=== PATIENT | male | born 1965 ===

== ENCOUNTER 2019-03-08 05:22 | Observation (INO) ==
[2019-03-08] MEDS ORDERED: ceFAZolin Inj 2gm (Premix) 2 GM/50 ML BAG IV ONE ×2 (05:47→06:00)
[2019-03-08] MEDS ORDERED: Lactated Ringers 1,000 ML PRIMARY IV ONE ×4 (05:47→13:02)
[2019-03-08] MEDS ORDERED: LIDOCAINE W/ SODIUM BICARB 0.5 ML SYR ONE (05:48)
[2019-03-08] MEDS ORDERED: Vancomycin-PHA to Dose IV PRN (06:00)
[2019-03-08] MEDS ORDERED: LIDOCAINE W/ SODIUM BICARB 0.5 ML SYR SUBD ONE (06:00)
[2019-03-08] MEDS ORDERED: Nasal Sanitizer POPSWAB ampule 3 AMP (Nozin) PREOP DOSE ENOS SCH (06:00)
[2019-03-08] MEDS ORDERED: BUPIVACAINE 0.25% W/ EPI - 10 ML VIAL ONE (06:52)
[2019-03-08] MEDS ORDERED: BACITRACIN 50,000 UNIT VIAL IRRIG ONE ×2 (06:52→11:08)
[2019-03-08] MEDS ORDERED: Sodium Chloride 0.9% vial 10 ML ONE ×3 (06:52→11:08)
[2019-03-08] MEDS ORDERED: LIDOCAINE HCL 2 % 10 ML JELLY URO-JECT TOPICAL ONE ×2 (06:53→07:54)
[2019-03-08] MEDS ORDERED: fentaNYL Inj 250 MCG/5 ML VIAL ONE (07:05)
[2019-03-08] MEDS ORDERED: MIDAZOLAM HCL 2 MG/2 ML VIAL ONE (07:05)
[2019-03-08] MEDS ORDERED: LIDOCAINE MPF 2% - 5 ML (20 MG/1 ML) ONE (07:06)
[2019-03-08] MEDS ORDERED: REMIFENTANIL HCL 5 MG VIAL IV ONE (07:06)
[2019-03-08] MEDS ORDERED: Propofol 1,000 MG/100 ML VIAL IV ONE ×3 (07:06→10:45)
[2019-03-08] MEDS ORDERED: ePHEDrine Inj 50 MG/ML AMP ONE (07:55)
[2019-03-08 08:06] LABS: BILIRUBIN,URINE NEGATIVE (NEG); CLARITY,URINE CLEAR (CLEAR); COLOR,URINE YELLOW (Y); GLUCOSE, URINE (UA) NEGATIVE (NEG); OCCULT BLOOD,URINE NEGATIVE (NEG); PH,URINE 5.5 (5.0-8.5); PROTEIN,URINE NEGATIVE (NEG); UROBILINOGEN,URINE 0.2 EU/dL (0.2)
[2019-03-08 08:09] LABS: URINE SAMPLE TYPE CATH SPECIMEN
[2019-03-08] MEDS ORDERED: PHENYLEPHRINE 10,000 MCG/1 ML VIAL ONE (08:25)
[2019-03-08] MEDS ORDERED: LIDOCAINE HCL 2 % 10 ML JELLY URO-JECT TOPICAL PRN (09:07)
[2019-03-08] MEDS ORDERED: KETAMINE 100 MG/1 ML - 5 ML ONE (10:29)
[2019-03-08] MEDS ORDERED: HYDROmorphone 2 MG/1 ML ONE (13:11)
[2019-03-08] MEDS ORDERED: fentaNYL Inj 100 MCG/2 ML VIAL IVP PRN (14:02)
[2019-03-08] MEDS ORDERED: HYDROmorphone 2 MG/1 ML IVP PRN (14:02)
[2019-03-08] MEDS ORDERED: LIDOCAINE W/ SODIUM BICARB 0.5 ML SYR SUBD PRN (14:02)
[2019-03-08] MEDS ORDERED: ONDANSETRON 4 MG/2 ML VIAL IVP PRN ×2 (14:02→15:16)
--- NOTE | 2019-03-08 14:04 | CRNA.PROGR ---
Anesthesia Time - Procedure/Recovery Time Start Date: 03/08/19 End Date: 03/08/19 Anesthesia : Time In: 07:35 Anesthesia : Time Out: 13:44 Anesthesia : Total Time: 369 - Total Anesthesia Time Total Anesthesia Time (minutes): 369 - Other Weight: 89.358 kg Height: 5 ft 10 in Body Mass Index (BMI): 28.3 Physical Status: P2 Anesthesia Type: General Anesthesia : ET
--- NOTE | 2019-03-08 14:04 | CRNA.PROGR ---
Anesthesia Recovery Phase I - Post Anesthesia Evaluation Patient's Condition on Arrival in Phase I: Stable Pain Level: 0
[2019-03-08] MEDS ORDERED: Lactated Ringers 1,000 ML PRIMARY IV SCH (14:15)
[2019-03-08] MEDS ORDERED: BISACODYL 5 MG TABLET PO PRN (15:16)
[2019-03-08] MEDS ORDERED: DOCUSATE 100 MG CAPSULE PO PRN (15:16)
[2019-03-08] MEDS ORDERED: MAGNESIUM CITRATE 296 ML SOLUTION PO PRN (15:16)
[2019-03-08] MEDS ORDERED: Metoclopramide Inj 10 MG/2 ML VIAL IVP PRN (15:16)
[2019-03-08] MEDS ORDERED: DIAZEPAM 10 MG TABLET PO PRN (15:16)
[2019-03-08] MEDS ORDERED: PROMETHAZINE 25 MG/1 ML VIAL IM PRN (15:16)
[2019-03-08] MEDS ORDERED: MORPHINE SULFATE 2 MG/1 ML IVP PRN (15:16)
[2019-03-08] MEDS ORDERED: MAGNESIUM 400 MG/5 ML - 30 ML (MILK OF MAGNESIA) PO PRN (15:16)
[2019-03-08] MEDS ORDERED: DIAZEPAM 10 MG/2 ML (5 MG/1 ML) CARPUJECT IVP PRN (15:16)
[2019-03-08] MEDS ORDERED: HYDROcodone-APAP 10 MG-325 MG TABLET PO PRN (15:16)
[2019-03-08] MEDS ORDERED: Fleet Enema 133ml RECTAL PRN (15:16)
[2019-03-08] MEDS ORDERED: Prochlorperazine Edisylate Inj 10mg/2ml vial IVP PRN (15:16)
[2019-03-08] MEDS ORDERED: Vancomycin-PHA to Dose IV SCH (15:16)
[2019-03-08] MEDS ORDERED: Ondansetron ODT Tab 4 MG TAB PO PRN (15:16)
[2019-03-08] MEDS ORDERED: HYDROcodone-APAP 5 MG -325 MG TABLET PO PRN (15:16)
[2019-03-08] MEDS: HYDROcodone-APAP 7.5 MG-325 MG TABLET PO PRN ×3 (15:56→23:29)
[2019-03-08] MEDS: ceFAZolin Inj 1 GM in Sodium Chloride 0.9% 100 ML IV SCH ×2 (16:34→23:27)
--- NOTE | 2019-03-08 17:36 | GEN.OPNOTE ---
Operative Note Surgery Date: 03/08/19 Preoperative Diagnosis: 1. Chronic neck pain. 2. Bilateral cervical radicular pain. 3. Constant numbness and tingling in the hands bilaterally. 4. 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 5. Multilevel cervical stenosis, moderate C4-5, severe C5-6, moderately severe C6-7. 6. Severe bilateral C4-5 neuroforaminal stenosis, severe right and severe bilateral C4-5, C5-6 and C6-7 neural foraminal stenosis worse on the right at all. cervical levels. 7. Multilevel cervical degenerative disc disease, moderate C4-5, advanced C5-6 and C6-7. 8. Multilevel mild to moderate cervical facet arthropathy and hypertrophy C3-4 bilaterally advanced C4-5 bilaterally. 9. C4-5, C5-6 and C6-7 bilateral uncal vertebral joint hypertrophy. 10. Reversal of the normal cervical lordosis, C4-C7. Postoperative Diagnosis: 1. Chronic neck pain. 2. Bilateral cervical radicular pain. 3. Constant numbness and tingling in the hands bilaterally. 4. 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 5. Multilevel cervical stenosis, moderate C4-5, severe C5-6, moderately severe C6-7. 6. Severe bilateral C4-5 neuroforaminal stenosis, severe right and severe bilateral C4-5, C5-6 and C6-7 neural foraminal stenosis worse on the right at all. cervical levels. 7. Multilevel cervical degenerative disc disease, moderate C4-5, advanced C5-6 and C6-7. 8. Multilevel mild to moderate cervical facet arthropathy and hypertrophy C3-4 bilaterally advanced C4-5 bilaterally. 9. C4- 5, C5-6 and C6-7 bilateral uncal vertebral joint hypertrophy. 10. Reversal of the normal cervical lordosis, C4-C7. Procedure: 1.) Arthrodesis, anterior cervical, with discectomy, osteophytectomy and foraminotomies bilaterally with removal of the posterior longitudinal ligament with decompression of central canal and bilateral neuroforaminal stenosis and disc space preparation for fusion of the interspace, C4-5. (CPT code: 39284). 2.) Arthrodesis, anterior cervical, with discectomy, osteophytectomy and foraminotomies bilaterally with removal of the posterior longitudinal ligament with decompression of central canal and bilateral neuroforaminal stenosis and disc space preparation for fusion of the interspace, C5-6. (CPT code: 94010). 3.) Arthrodesis, anterior cervical, with discectomy, osteophytectomy and foraminotomies bilaterally with removal of the posterior longitudinal ligament with decompression of central canal and bilateral neurof oraminal stenosis and disc space preparation for fusion of the interspace, C6-7. (CPT code: 99898). 4.) Insertion of a 7 mm x 14 mm x 17 mm 6-degree lordotic Advance Tritanium C titanium anterior cervical cage filled in the center with Anette DBM Putty (implantable allograft) into the C4-5 interspace for fusion of the C3-4 interspace. (CPT code: 36126). 5.) Insertion of a 7 mm x 14 mm x 17 mm 6-degree lordotic Anette Tritanium C titanium anterior cervical cage filled in the center with Anette DBM Putty (implantable allograft) into the C5-6 interspace for fusion of the C4-5 interspace. (CPT code: 85161). 6.) Insertion of a 6 mm x 14 mm x 17 mm 6-degree lordotic Anette Tritanium C titanium anterior cervical cage filled in the center with Advance DBM Putty (implantable allograft) into the C6-7 interspace for fusion of the C5-6 interspace. (CPT code: 17567). 7.) Anterior cervical plating, C4-7 using a 3 level, 8 hole, 48 mm Advance Aviator titanium anterior cervical plate affixed to the C4, C5, and C6 vertebral bodies using 4.0 mm x 16 mm variable angle titanium anterior cervical screws, and to the C7 vertebral body using 4.0 mm x 16 mm fixed angle titanium anterior cervical screws. (CPT code: 73635). 8.) Use of 5 cc of Advance DBM Putty (implantable allograft) for filling of the anterior cervical cages. (CPT code: 71515). 9.) Use of the operative microscope for the microsurgical techniques used for the C4-5, C5-6, and C6-7 discectomies and foraminotomies. (CPT code: 58268). 10.) Use of intra-operative fluoroscopy for location of the correct surgical levels and for confirmation of the final position of the intervertebral cages and final confirmation of the position of the anterior cervical hardware elements. 11.) Use of intra-operative neuromonitoring including EMG's, SSEP's, and MEP's. Surgeon: Ward Bryan MD Botany Technician: WILMER Sierra Anesthesia Provider: Crow Aldridge CRNA Anesthesia Type: General Estimated Blood Loss (mL): 75 Fluids: See anesthesia record Pathology: None Indications: Mr. Bartholomew is a 53 year old gentleman who was seen in a new patient consultation on 02/07/19. Mr. Bartholomew recently had a stoke while at work in [place]. He was following up with Dr. Biggs who sent Mr. Bartholomew for a cervical and brain MRI and referred him for his neck pain. His cervical MRI demonstrated mild to moderate degenerative disc disease at C2- 3, C3-4, and C7-T1, moderate degenerative disc disease at C4-5, and early advanced to advanced degenerative disc disease at C5-6 and C6-7. There is multilevel mild to moderate facet arthropathy and hypertrophy throughout the cervical spine. There is a mild anterolisthesis of C4 on C5 and diffuse disc/osteophye complexes at C4-5, C5-6, and C6-7 with cervical central canal stenosis at these levels and moderately severe to severe bilateral neuroforaminal stenosis at these levels. Since his symptoms had not responded to expectant management or non-operative therapies, we discussed the option of proceeding with a C4-7 anterior cervical discectomy and fusion to adderess his neck pain that radiates down both arms and the numbness in his arms and hands and the weakness in his hands bilaterally. He wished to proceed with the surgical procedure and presentts today for his surgery. Findings: 1.) Multlevel cervical central canal stenosis. 2.) Multilevel cervical neuroforaminal stenosis. 3.) Multilevel diffuse prominent disc/ostephyte complexes and uncovertebral joint hypertrophy. Complications: None Operative Summary: Mr. Bartholomew was met in the preoperative area. His surgical history and physical documented in his pre-operative surgical chart was reviewed. We reviewed the procedure to be performed and we were in agreement on the procedure to be performed and this matched what was written on the patient's consent form. Any questions that Mr. Bartholomew had were answered before he was taken back to the operating room suite. Mr. Bartholomew was brought back to the operating room suite. He was moved over onto the surgical bed in the supine position. General anesthesia was induced by the anesthesia staff and he was intubated. A Wynn catheter was placed in his bladder for the procedure. He had pneumatic compression hose placed on his lower legs bilaterally. His head was placed on a gel ring and rolled up surgical towels were placed in the intrascapular area and under his shoulders bilaterally. His arms were gently tucked at his sides. All bony prominences were well padded. His Wynn catheter was checked to be free from kinks. His pneumatic compression hose were attached to a pneumatic compression devise. The C-arm fluoroscopy unit was used to help localize the skin incision for the a pproach to the intended surgical levels. The skin was marked along the medial border of the sternocleidomastoid muscle with a skin marker. Mr. Bartholomew was prepped and draped in the usual and standard fashion. He was given 2 grams of Ancef and vancomycin (as dosed per pharmacy) IV for perioperative antibiosis. A standard surgical timeout was performed identifying the correct patient, the correct procedure, and the correct equipment being available for the procedure. The intended skin incision was injected subcutaneously with quarter percent Marcaine with 1 in 200,000 epinephrine. The skin was incised with a 10 blade scalpel and all dermal and superficial bleeding points controlled with bipolar cautery. Dissection was continued down through the subcutaneous tissue to the level of the platysma muscle. The platysma muscle was incised with the Metzenbaum scissors in the direction of the skin incision. This allowed identification the medial border of the sternocleidomastoid muscle. Further dissection identified the omohyoid muscle which was circumferentially dissected out, tagged with two 0-Silk suture and then cut with a Metzenbaum scissors with the muscle stumps retracted with snaps attached to the sutures. Continued dissection was performed in both a sharp and blunt fashion down to the pre-vertebral fascia. The carotid artery was palpated to be lateral to the dissection plane. Cloward hand-held retractors were used to retract and protect the soft tissues while the prevertebral fascia was dissected with a Kitner. Once a disc space became exposed a bent spinal needle was placed into the disc space and the level was localized as the C5-6 level, one of the intended surgical levels with lateral fluoroscopy. Continued dissection of the prevertebral fascia was performed exposing the C4, C5, C6, and C7 vertebral bodies. The medial border of the longus coli muscle was dissected with Bovie cautery with an insulated tip turned down to a low setting from C4-7 bilaterally. The hand-held Cloward retractors were then replaced with the Reformatory Attendant self-retaining retractor system which was first placed at the C4-5 level to expose this level and protect the soft tissues at this level. A 14 mm distraction pin was placed into the C4 vertebral body and another was placed into the C5 vertebral body. The operative microscope was brought into the surgical field and used for the microsurgical techniques used for the C4-5 discectomy. An annulotomy was performed with a 15 blade scalpel and disc material was removed with a pituitary rongeur. Additional disc and cartilaginous endplate was loosened in the disc space using a small straight curette with the fragments being removed with a pituitary rongeur. The high-speed [employer] Tom drill with a matchstick bit was used to perform arthrodesis/decortication of the C4 and C5 endplates preparing the endplates for fusion. The same drill with the same bit was used to drill away the prominent diffuse osteophytes along the posterior inferior aspect of the C4 vertebral body and the posterior superior aspect of C5 vertebral body as well as the uncovertebral joints bilaterally. Foraminotomies were performed bilaterally with the same drill with same bit. A nerve hook was used to define the plane between the posterior longitudinal ligament and the dura. The posterior longitudinal ligament was completely r emoved with small Kerrison punches. The same instruments were used to extend the foraminotomies bilaterally that had been started with the high-speed drill with a matchstick bit. Surgical findings at this level included diffuse posterior endplate osteophytes, uncovertebral joint hypertrophy, central spinal canal and neuroforaminal stenosis bilaterally. Excellent decompression of the spinal canal, neuroforamen, and exiting nerve roots was assured both by visual inspection as well as by palpation with a nerve hook underneath the vertebral bodies and out the neuroforamen bilaterally. The interspace was irrigated with bacitracin irrigation. FloSeal hemostatic agent was placed over all exposed dural elements. The interspace was sized the appropriate size anterior cervical cage. A 7 mm x 14 mm x17 mm 6-degree lordotic Tritanium C titanium anterior cervical cage was selected and filled in the center with Anette DBM Putty (implantable allograft) and then inserted into the C4-5 interspace with the flame hardening machine operator. The cage was gently countersunk with a bone tamp and mallet. The cage obtained good purchase between the C4 and C5 endplates. The final position of the cage was confirmed with lateral fluoroscopy. The C4 [place] distraction pin was removed and bony bleeding was controlled with FloSeal and a surgical scarlet. The Reformatory Attendant self-retaining retractor system was removed and placed across the C5-6 level for the exposure this level and the protection of the soft tissues at this level. The [place] distraction pin was placed into the C6 vertebral body. The operative microscope was used for the microsurgical techniques used for the C5-6 discectomy. An annulotomy was performed with a 15 blade scalpel and disc material was removed with a pituitary rongeur. Additional disc and cartilaginous endplate was loosened in the disc space with a small straight curette with the fragments being removed with a pituitary ronqeur. The high- speed [employer] Tom drill with a matchstick bit was used perform arthrodesis/decortication of the C5 and C6 endplates preparing the endplates for fusion. The same drill with the same bit was used to drill away the diffuse, prominent osteophytes along the posterior inferior aspect of the C5 vertebral body and the posterior superior aspect of the C6 vertebral body as well as to drill away the uncovertebral joint hypertrophy bilaterally. Foraminotomies were performed bilaterally with the same drill with the same bit. A nerve hook was used to define the plane between the posterior longitudinal ligament and the dura. The posterior longitudinal ligament was completely removed with small Kerrison punches. The same instruments were used to extend the foraminotomies bilaterally that had been started with the high-speed drill with a matchstick bit. Surgical findings at this level included osteophytes along the posterior endplates and uncovertebral joint hypertrophy contributing to central spinal canal and severe bilateral neuroforaminal stenosis. Excellent decompression of the spinal canal, neuroforamen, and exiting nerve roots was assured both by visual inspection as well as by palpation with a nerve hook underneath the vertebral bodies and out the neuroforamen bilaterally. The interspace was irrigated with bacitracin irrigation. FloSeal hemostatic agent was placed over all exposed dural elements. The interspace was sized the appropriate size anterior cervical cage. A 7 mm x 14 mm x 17 mm 6-degree Tritanium C titanium anterior cervical cage was selected and filled in the center with Advance DBM Putty (implantable allograft) and then inserted into the C5-6 interspace with the flame hardening machine operator. The cage was gently countersunk with a bone tamp and mallet. The cage obtained good purchase between the C5 and C6 endplates. The final position of the cage was confirmed with lateral fluoroscopy. The C5 [place] distraction pin was removed and bony bleeding was controlled with FloSeal and a surgical scarlet. The Reformatory Attendant self-retaining retractor system was removed and placed across the C6-7 level for the exposure this level and the protection of the soft tissues at this level. The [place] distraction pin was placed into the C7 vertebral body. The operative microscope was used for this microsurgical techniques used for the C6-7 discectomy. An annulotomy was performed with a 15 blade scalpel and disc material was removed with a pituitary rongeur. Additional disc and cartilaginous endplate was loosened in the anterior aspect of the disc space with a small straight curette with the fragments being removed with a pituitary ronqeur. The disc space was collapsed at this level so the high-speed [facility] drill with a matchstick bit was used to perform the majority of the discectomy at this level and to perform the arthrodesis/decortication of the C6 and C7 endplates preparing the endplates for fusion. The same drill with the same bit was used to drill away the diffuse, prominent osteophytes along the posterior inferior aspect of the C6 vertebral body and the posterior superior aspect of the C7 vertebral body as well as to drill away the uncovertebral joint hypertrophy bilaterally. Foraminotomies were performed bilaterally with the same drill with the same bit. A nerve hook was used to define the plane between the posterior longitudinal ligament and the dura. The posterior longitudinal ligament was completely removed with small Kerrison punches. The same instruments were used to extend the foraminotomies bilaterally that had been started with the high-speed drill with a matchstick bit. Surgical findings at this level was diffuse posterior endplate osteophytes, uncovertebral joint hypertrophy, and central spinal canal and severe bilateral neuroforaminal stenosis. Excellent decompression of the spinal canal, neuroforamen, and exiting nerve roots was assured both by visual inspection as well as by palpation with a nerve hook underneath the vertebral bodies and out the neuroforamen bilaterally. The interspace was irrigated with bacitracin irrigation. FloSeal hemostatic agent was placed over all exposed dural elements. The interspace was sized the appropriate size anterior cervical cage. A 6 mm x 14 mm x 17 mm 6-degree Tritanium C titanium anterior cervical cage was selected and filled in the center with VeriCenter DBM Putty (implantable allograft) and then inserted into the C6-7 interspace with the flame hardening machine operator. The cage was gently countersunk with a bone tamp and mallet. The cage obtained good purchase between the C6 and C7 endplates. The final position of the cage was confirmed with lateral fluoroscopy. The [place] distraction pins in the C6 and C7 vertebral bodies were removed. Bony bleeding was controlled FloSeal and surgical patties. The Reformatory Attendant self- retaining retractor system was removed and placed in the center portion of the surgical dissection to provide the proper exposure needed for the instrumentation portion of the procedure. Any remaining C4, C5, C6, and C7 anterior osteophytes were removed with the large Leksell rongeur as well as with the high speed drill with the matchstick bit. The appropriate size anterior cervical plate were selected both by visual inspection as well as by lateral fluoroscopy. A 3 level, 8 hole, 48 mm Advance Aviator titanium anterior cervical plate was selected and affixed to the C4, C5, and C6 vertebral bodies using 4.0 mm x 16 mm variable angle titanium screws, and to the C7 vertebral body using 4.0 mm x 16 mm fixed angle titanium anterior cervical screws. All screws obtained good purchase in the vertebral body bone. The locking mechanism was then deployed at each with visual inspection confirming that the locking mechanism fully deployed across each of the screw heads at each level of the plate bilaterally. The Reformatory Attendant self-retaining retractor system was removed from the surgical site. Final AP and lateral fluoroscopic images were obtained. The tom of the dissection plane were inspected for any bleeding points. Any identified were coagulated with bipolar cautery. The surgical site was copiously irrigated with bacitracin irrigation allowing the irrigant to sit to again inspect for any bleeding points with none identified. A medium TORRI drain was placed into the surgical site. The closure portion of the procedure was begun. The omohyoid muscle was reapproximated with the silk suture tags as well as with two interrupted 3-0 Vicryl suture. The platysma muscle was reapproximated with 3-0 Vicryl suture in an interrupted fashion. The dermis and superficial subcu taneous tissue was reapproximated with 3-0 Vicryl suture in an inverted interrupted fashion. The incision was cleansed with a bacitracin soaked sponge and dried with a sterile dry sponge. Steri-Strips were placed across the incision. The incision was dressed with a Covaderm dressing. The surgical drain was secured with suture. The drain site was dressed. All surgical drapes removed from Mr. Bartholomew. He was carefully moved over onto the PACU stretcher. He was awoken and extubated by the anesthesia staff. He was taken to the recovery room in stable condition. All surgical counts reporte d as correct by the scrub and circulating personnel. A Physician's Botany Technician, Ms. Elodia Holman PA-C, assisted with the procedure including the exposure and closure portions of the procedure. She also provided irrigation and suctioning throughout the procedure.
--- NOTE | 2019-03-08 18:01 | NEURO.PROG ---
Subjective Post Op Day: 0 Pain Management: PO Wynn Catheter: No Flatus: Yes Diet: Regular Ambulating: Yes Additional Details: Lying comfortably in bed. Neck sore. Discomfort in upper arms. "Can feel fingers and fingertips". Neck - soft/flat. Dressing - clean/dry/intact. Full metal fabrication supervisor strength, biceps, triceps, deltoid strength bilaterally. Can easily place hands on head and above and over head bilaterally. Continue drain. Continue post-operative antibiotics. Continue post-operative pain control. Mobilize. Objective : Data - Vital Signs Vital Signs and I&O: Vital Signs - Last Taken Temperature 97.4 F 03/08/19 17:00 Pulse Rate 83 03/08/19 17:00 Respiratory Rate 18 03/08/19 17:00 Blood Pressure 161/97 03/08/19 17:00 Pulse Ox 93 03/08/19 17:00 Intake and Output (24hr x 4 totals) 03/06/19 03/07/19 03/08/19 03/09/19 05:59 05:59 05:59 05:59 Intake Total 3340 / 3340 Output Total 1850 / 1850 Balance 1490 / 1490
[2019-03-08] MEDS ORDERED: NICOTINE 21 MG /DAY PATCH TRANSDERM SCH (19:29)
--- NOTE | 2019-03-08 19:35 | PDOC ---
HPI - History of Present Illness Date of Service: 03/08/19 Time of Service: 19:30 Chief Complaint: Bilateral arm numbness right greater than left History of Present Illness: This very pleasant 53-year-old male with HIV and tobacco abuse, who recently had a pontine stroke and also has had long-term bilateral upper extremity weakness and numbness in his fingertips. He states that the numbness and weakness in his upper extremities was quite bothersome to him. He had workup done with neurology and neurosurgery that revealed cervical spinal stenosis and opted for cervical surgery done by Dr. Bryan today. See his postoperative note for details of the procedures performed. In terms of HIV, the patient states to me that his viral load has been 0 for a long time now. He cannot point to any particular injury that may have done damage to his neck, but states that in his youth he rode a lot of horses and fell off those horses at times. He works in [employer] on the [employer] currently. Postoperatively, he does not complain of numbness and neck she states that it is resolved and his fingertips. 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 The patient states that his pain is well controlled at this time and feels more like a muscle ache than anything in his neck. He denies any chest pain, shortness breath, or trouble breathing. He does request a nicotine patch. Past Medical History Medical History: 1. HIV. 2. Cervical stenosis. 3. Recent pontine stroke. 4. Tobacco abuse Surgical History: Cervical surgery today otherwise patient denies any prior surgeries. Pertinent Family History: No history of heart disease in the family. Past Social History: Smokes daily. Does not take alcohol. Single, no kids, lives in [place], [place]. He works in [employer]. Admits to remote history of IV drug use, but does not currently use any illicit substances. Tobacco Use: Current Every Day Smoker In the Past 12 Months, Have Used or Abuse Any of the Following Substance: None Alcohol Use: None Medication / Allergies Home Medications: Home Medications Medication Instructions Recorded Confirmed elviteg 150 mg-cob 150 mg-emtricit 1 tab PO QDAY 02/05/19 03/06/19 200 mg-tenofo alafenam 10 mg tablet losartan 50 mg tablet 50 mg PO QDAY 02/05/19 03/06/19 pravastatin 20 mg tablet 20 mg PO QDAY 02/05/19 03/06/19 pravastatin 40 mg tablet 40 mg PO QDAY 02/05/19 03/06/19 Allergies/Adverse Reactions: Allergies Allergy/AdvReac Type Severity Reaction Status Date / Time No Known Allergies Allergy Verified 03/04/19 09:36 Review of Systems - Respiratory Respiratory: REPORTS: Negative System Review - Cardiovascular Cardiovascular: REPORTS: Negative System Review - Gastrointestinal Gastrointestinal / Abdominal: REPORTS: Negative System Review - Genitourinary Genitourinary: REPORTS: Negative System Review - Musculoskeletal Musculoskeletal: REPORTS: See HPI - Neurological Neurologic: REPORTS: See HPI Exam - Vitals Vital Signs: Vital Signs Temperature 97.3 F Temperature Source Temporal Artery Scan Pulse Rate [Pulse Oximeter] 86 Pulse Rate 78 Respiratory Rate 20 Blood Pressure [Right Arm] 148/78 Blood Pressure 148/97 Pulse Ox 94 Oxygen Flow Rate 1 Oxygen Delivery Method Room Air Height 5 ft 10 in Weight 197 lb - General General Appearance: No Acute Distress, Cooperative - Head Head Exam: Normal Inspection, Normocephalic, Atraumatic - Eye Eye Exam: POSITIVE: No Scleral Icterus - ENT ENT Exam: POSITIVE: Mucous Membranes Moist - Neck Additional Neck Exam Details: [place] collar in place. Right side is bandaged. Bandages clean, dry, and tach. A TORRI drain is in place. - Respiratory Respiratory Exam: POSITIVE: Clear to Auscultation - Bilaterally, Breathing Non Labored - Cardiovascular Cardiovascular Exam: POSITIVE: RRR, No Murmur, No Clicks, No Gallops, No Rubs, No JVD - GI/Abdominal GI/Abdominal Exam: POSITIVE: Normal Bowel Sounds, Non Tender, Non Distended, Soft - Rectal Rectal Exam: POSITIVE: Deferred - External Exam: POSITIVE: Deferred Exam: POSITIVE: Deferred - Extremities Extremities Exam: POSITIVE: No Clubbing Present, No Edema Present, No Cyanosis Present - Neurological Neurological Exam: POSITIVE: Alert, Oriented x 3, No Facial Droop, Speech Intact / Clear, Moves All Extremities Equally - Psychiatric Psychiatric Exam: POSITIVE: Normal Affect, Normal Mood Results - Labs Additional Lab Results: 03/08/19 07:57 Ur Culture Indicated? Culture not set Assessment and Plan - Patient Problems (1) HIV positive Current Visit: Yes Status: Chronic Code(s): Z21 - Asymptomatic human immunodeficiency virus [HIV] infection status (2) Hyperlipidemia Current Visit: Yes Status: Chronic Code(s): E78.5 - Hyperlipidemia, unspecified (3) Hypertension Current Visit: Yes Status: Chronic Code(s): I10 - Essential (primary) hypertension Qualifiers: Hypertension type: essential hypertension Qualified Code(s): I10 - Essential (primary) hypertension (4) History of stroke Current Visit: Yes Status: Acute Code(s): Z86.73 - Personal history of transient ischemic attack (TIA), and cerebral infarction without residual deficits (5) Tobacco abuse Current Visit: Yes Status: Acute Code(s): Z72.0 - Tobacco use (6) Status post cervical spinal fusion Current Visit: Yes Status: Acute Code(s): Z98.1 - Arthrodesis status - Assessment / Plan Additional Assessment/Plan Details: Nicotine patch. He is precontemplation otherwise in terms of smoking cessation. Resume antiretroviral therapy for HIV. I would prefer that the patient uses only his home medication. Unlikely to have his medication for HIV on stock in our pharmacy. PT and OT as per neurosurgery. [place] collar is in place. Pain control as per neurosurgery I think the resumption of losartan is fine. The patient is euvolemic at this time. Labs in a.m.
[2019-03-08] MEDS ORDERED: Pravastatin Tab 40 MG TAB PO SCH (21:00)
[2019-03-08] MEDS ORDERED: Pravastatin Tab 20 MG TAB PO SCH (21:00)
[2019-03-09] MEDS: HYDROcodone-APAP 7.5 MG-325 MG TABLET PO PRN ×2 (03:56→09:20)
[2019-03-09 05:05] VITALS: RESP 20
[2019-03-09 05:17] LABS: BASOPHILS # (AUTO) 0.01 10*3/UL; BASOPHILS % (AUTO) 0.1 % (0-1); EOSINOPHILS # (AUTO) 0 10*3/UL; EOSINOPHILS % (AUTO) 0 % (0-8); Hematocrit [HCT] 42.4 % (42.0-52.0); Hemoglobin [HGB] 14.4 g/dL (14.0-18.0); LYMPHOCYTES # (AUTO) 1.41 10*3/uL; MEAN CORPUSCULAR HEMOGLOBIN 30.7 PG (27-31); MEAN CORPUSCULAR VOLUME 90.4 FL (80-90); MEAN PLATELET VOLUME 10.4 FL (7.4-12.2); MONOCYTES # (AUTO) 0.69 10*3/UL (0.3-0.8); MONOCYTES % (AUTO) 5.7 % (5-15); NEUTROPHILS # (AUTO) 9.87 10*3/UL; NEUTROPHILS % (AUTO) 82.3 % (50-80); RED BLOOD COUNT 4.69 10^6/uL (4.70-6.10)
[2019-03-09 05:28] LABS: BLOOD UREA NITROGEN 13 mg/dL (7-22); BUN/CREATININE RATIO 21.66 (6-20)
[2019-03-09 05:36] LABS: PLATELET MORPHOLOGY COMMENT NORMAL MORPHOLOGY (NORM); RBC MORPHOLOGY COMMENT NORMAL MORPHOLOGY (NORM); WBC MORPHOLOGY COMMENT NORMAL MORPHOLOGY (NORM)
[2019-03-09 06:53] VITALS: BP 145/98; TEMP 97.8; O2SAT 100
[2019-03-09] MEDS ORDERED: PANTOPRAZOLE 40 MG TABLET PO SCH (07:00)
--- NOTE | 2019-03-09 08:45 | NEURO.PROG ---
Subjective Post Op Day: 1 Pain Management: PO Wynn Catheter: No Diet: Regular Ambulating: Yes Additional Details: Kev is awake and alert, moving all extremities. He told Dr Bryan all of his preop symptoms of numbness, tingling and pain in his arms is completely gone. He has good bilateral hand and arm strength and mobility. He is up and independent in his room. Dressing is dry and intact over his right neck. Hemovac drainage was 35ml serosanguinous drainage in 12 hours. Drainage is minimal this morning. Pain is well controlled on hydrocodone and he is wanting to go home Discharge instructions were given regarding activity and incision care, as well as a post op appointment with Dr Bryan. Plan: Discontinue hemovac drain Dressing change Discharge home Objective : Data - Labs CBC and BMP: 03/09/19 03:58 03/09/19 03:58 - Vital Signs Vital Signs and I&O: Vital Signs - Last Taken Temperature 97.8 F 03/09/19 06:52 Pulse Rate 87 03/09/19 06:52 Respiratory Rate 20 03/09/19 06:52 Blood Pressure 145/98 03/09/19 06:52 Pulse Ox 100 03/09/19 06:52 Intake and Output (24hr x 4 totals) 03/07/19 03/08/19 03/09/19 03/10/19 05:59 05:59 05:59 05:59 Intake Total 5999 / 5999 Output Total 4130 / 4130 250 / 250 Balance 1869 / 1869 -250 / -250
[2019-03-09] MEDS ORDERED: LOSARTAN 50 MG TABLET PO SCH (09:00)
[2019-03-09] MEDS ORDERED: Pravastatin Tab 40 MG TAB PO SCH (09:00)
[2019-03-09] MEDS ORDERED: Pravastatin Tab 20 MG TAB PO SCH (09:00)
--- NOTE | 2019-03-09 09:41 | DCSUMMARY ---
Hospitalization Summary Admit Date: 03/08/2019 Discharge Date: 03/09/19 Primary Diagnosis:: status post cervical surgery (ACDF) Hospital Course: This 53-year-old male with HIV, recent pontine stroke, and a year or more numbness and tingling and decreased strength in his hands. MRI scan of the cervical spine ended up showing cervical disc disease as well as cervical spinal stenosis and he presented for an ACDF procedure performed by Dr. Bryan on 03/08/2019, see his surgical notes regarding the procedure. Postoperatively the patient did very well. He was in , he stated that his numbness and tingling in strength at all improved from pre-surgery. We resumed his normal medications for HIV and for other medical issues such as hypercholesterolemia. He tolerated his therapy well. On the date of discharge, the patient had no complaints of chest pain, shortness breath, nausea or vomiting. His postsurgical pain was well-controlled. He was ready to go home. In terms of smoking cessation, he has Chantix, nicotine replacement patches, and he is contemplative about smoking cessation at this time. I did advise him prior to discharge from the hospital standpoint that he should consider increasing aspirin to 325 mg daily for stroke prevention given his pontine stroke per my review of his neurology notes. Assessment and Plan: 1. As per discharge assessments noted 2. Disposition: Patient is discharged home. 3. Condition on discharge, stable and improved. 4. Diet: regular diet 5. Activities: Activity restrictions as per neurosurgery. 6. Follow-Up: 1. Neurosurgery for post surgical follow-up 2. Primary care provider, Dr. Joyce who is also his infectious disease physician 7. Medications at the Time of Discharge: Home Medications Medication Instructions Recorded Confirmed elviteg 150 mg-cob 150 mg-emtricit 1 tab PO QDAY 02/05/19 03/06/19 200 mg-tenofo alafenam 10 mg tablet losartan 50 mg tablet 50 mg PO QDAY 02/05/19 03/06/19 pravastatin 20 mg tablet 20 mg PO QDAY 02/05/19 03/06/19 pravastatin 40 mg tablet 40 mg PO QDAY 02/05/19 03/06/19 HYDROcodone/APAP 7.5/325 Tab 1 - 2 tab PO Q4H PRN #60 tab 03/09/19 [[place] 7.5/325 Tab] Observation discharge Exam - Vitals Vital Signs: Vital Signs Temperature 97.8 F Temperature Source Temporal Artery Scan Pulse Rate [Pulse Oximeter] 87 Pulse Rate 78 Respiratory Rate 20 Blood Pressure [Right Arm] 145/98 Blood Pressure 148/97 Pulse Ox 100 Oxygen Flow Rate 1 Oxygen Delivery Method Room Air Height 5 ft 10 in Weight 206 lb - General General Appearance: No Acute Distress, Cooperative - Eye Eye Exam: POSITIVE: No Scleral Icterus - ENT ENT Exam: POSITIVE: Mucous Membranes Moist - Neck Neck Exam: JVP is not Raised Additional Neck Exam Details: Right-sided bandages are intact, clean, dry, [place] collar in place with ambulation. - Respiratory Respiratory Exam: POSITIVE: Clear to Auscultation - Bilaterally, Breathing Non Labored - Cardiovascular Cardiovascular Exam: POSITIVE: RRR, No Murmur, No Clicks, No Gallops, No Rubs, No JVD - GI/Abdominal GI/Abdominal Exam: POSITIVE: Normal Bowel Sounds, Non Tender, Non Distended, Soft - Extremities Extremities Exam: POSITIVE: No Clubbing Present, No Edema Present, No Cyanosis Present - Neurological Neurological Exam: POSITIVE: Alert, Oriented x 3, No Facial Droop, Speech Intact / Clear, Moves All Extremities Equally Data Peritnent Studies: 03/09/19 03/09/19 03:58 03:58 WBC 12.01 H Hgb 14.4 Hct 42.4 Plt Count 217 Sodium 140 Potassium 4.0 Chloride 107 Carbon Dioxide 26 Anion Gap 7 BUN 13 Creatinine 0.6 L Estimated GFR > 60 BUN/Creatinine Ratio 21.66 H Glucose 183 H Calculated Osmolality 294.0 H Calcium 8.8 Patient Problems - Patient Problem List (1) Status post cervical spinal fusion Current Visit: Yes Status: Acute Code(s): Z98.1 - Arthrodesis status Category: Surgical (2) HIV positive Current Visit: Yes Status: Chronic Comment: with undetectable viral load Code(s): Z21 - Asymptomatic human immunodeficiency virus [HIV] infection status Category: Medical (3) Hyperlipidemia Current Visit: Yes Status: Chronic Code(s): E78.5 - Hyperlipidemia, unspecified Category: Medical (4) Hypertension Current Visit: Yes Status: Chronic Code(s): I10 - Essential (primary) hypertension Qualifiers: Hypertension type: essential hypertension Qualified Code(s): I10 - Essential (primary) hypertension Category: Medical (5) History of stroke Current Visit: Yes Status: Acute Comment: 01/2019 Code(s): Z86.73 - Personal history of transient ischemic attack (TIA), and cerebral infarction without residual deficits Category: Medical (6) Tobacco abuse Current Visit: Yes Status: Acute Code(s): Z72.0 - Tobacco use Category: Medical
--- NOTE | 2019-03-09 09:56 | PT.PROG ---
Progress Note Progress Note: S: pt reports he is ready to go home. O: nsg okay'd prior to PT. pt instructed to ambulate 150 feet with CGA - SBA , pt ind with brace donning doffing. pt ind w putting shirt on. pt instructed in 1 flight of stairs with CGa x 1 and no handrail . pt returned to his room A: pt tolerated therapy well. safe to go home P: DC PT
--- NOTE | 2019-03-11 10:08 | PTI REPORT ---
Thank you for the referral of Jimi Bartholomew. He was seen on 03/08/19 for an inpatient evaluation status post cervical fusion. SUBJECTIVE: The patient is a 53-year-old male. The patient reports that he lives in [place] by himself. The patient reports that he has a step to get onto his porch. The patient was previously independent. His symptoms have improved since surgery. The patient's pain is minimal at this time. PAST MEDICAL HISTORY: Past medical history can be found in the patient's medical record. OBJECTIVE FINDINGS: General observations: Nursing okayed treatment prior to PT. The patient was issued and fit for cervical collar. The patient was instructed in cervical restrictions and precautions. The patient had [place] catheter and was on two liters of oxygen, but nursing okayed discontinuation of oxygen. Bed mobility: The patient performed supine to sit transfer to edge of bed with min assist x1. Transfers: The patient required contact guard assist x2 for sit to stand transfer. Ambulation: The patient was instructed to ambulate approximately 30 feet with contact guard assist. He demonstrated occasional loss of balance but was able to self correct. ASSESSMENT: The patient is a 53-year-old male that presents status post cervical fusion. The patient would benefit from skilled therapy in order to improve functional mobility. Problem List: Decreased functional mobility Short-Term Goals: To be met by discharge from inpatient: Patient will be independent with transfers. Patient will be able to ambulate 150 feet independently. Patient will be able to ascend and descend three stairs independently. Long-Term Goals: To be met following discharge from inpatient: Patient will be able to return home per prior level of function. TREATMENT PLAN: Patient will be seen B.I.D during the week and one time per day over the weekend as an inpatient for gait training and functional activity. INITIAL TREATMENT: Treatment today consisted of the initial evaluation. Following treatment the patient was left in chair with chair alarm activated, cervical collar on, and call light within reach. [facility]
--- NOTE | 2019-03-11 10:36 | OTI REPORT ---
Thank you for the referral of Jimi Bartholomew. He was seen on 03/08/19 for an occupational therapy inpatient evaluation status post cervical fusion. SUBJECTIVE: The patient is a 53-year-old male who reports he is from [place], [place]. He lives in a house with a couple steps to the entrance of his home. He was independent at prior level of function with all ADLs and iADLs. He did report that he had neck pain and issues with bilateral numbness and tingling in his upper extremities. The patient reports moderate pain; however, the pain has subsided since his pain medication. He reports that his numbness and tingling in his bilateral upper extremities has decreased as well. The patient is eager to get up and move with therapy at this time. He reports that he already has a ham stripper at home; however, parts of it are broken and he would like a new one. The patient reports he did not use an adaptive device for ambulation prior to his procedure. PAST MEDICAL HISTORY: Past medical history can be found in the patient's medical record. OBJECTIVE FINDINGS: Bed mobility: The patient demonstrated the ability to move from supine in bed to sitting edge of bed independently. He was educated in post op cervical fusion precautions and demonstrated understanding. The patient was also educated in his cervical collar and how to don and doff the cervical collar. Transfers: The patient did perform functional mobility tasks with physical therapy. He did demonstrate the ability to perform a functional transfer from edge of bed with contact guard assist only for safety. Balance: The patient had no losses of balance at OT evaluation. Activities of daily living: The patient is unable to perform dressing at this time secondary to catheter and IV placement and nursing request. ASSESSMENT: Rehab potential is good. Problem List: Decreased ability to complete lower extremity dressing Decreased standing balance Decreased activity tolerance Short-Term Goals: To be met by discharge from inpatient: Patient will demonstrate the ability to complete lower extremity dressing tasks independently with use of adaptive equipment as needed. Patient will demonstrate the ability to stand at the sink with no losses of balance and complete standing grooming tasks without fatigue. Long-Term Goals: To be met following discharge from inpatient: Patient will return home, following post op cervical precautions and be independent in ADL tasks. TREATMENT PLAN: Patient will be seen for one more session in the morning to assist with dressing and to reiterate post op cervical fusion precautions. INITIAL TREATMENT: Treatment today consisted of the initial evaluation. The patient was issued a ham stripper today per his request; however, we did not perform lower extremity dressing per nursing request. SHAYAN
== END 2019-03-09 09:26 | disposition home or self-care (01) ==
LOC: OR 05:22 → MED/SURG 05:22 → OPS 05:28
PROVIDERS: ADMIT Neurological Surgery; ATTEND Neurological Surgery